=== PATIENT | male | born 1980 | race African-American/Black ===

== ENCOUNTER 2017-05-23 01:55 | Emergency (ER) | payer MEDICAID ==
[~2017-05-23] VITALS: Ht 172.7 cm; Wt 125.0 kg
[2017-05-23] MEDS ORDERED: SODIUM CHLORIDE 0.9% 1,000 ML IV ONE ×2 (02:22→04:04)
[2017-05-23 02:49] LABS: EOSINOPHILS % 2.4 % (0.0-5.0); HEMATOCRIT. 43.2 % (42.0-52.0); HEMOGLOBIN. 14.9 g/dL (14.0-18.0); LYMPHOCYTES % 31.6 % (20.0-50.0); MEAN CORPUSCULAR HEMOGLOBIN 30.4 pg (28.0-32.0); MEAN CORPUSCULAR VOLUME 88.4 fL (80.0-94.0); MEAN PLATELET VOLUME 9.8 fl (7.4-10.4); MONOCYTES % 7.4 % (2.0-8.0); NEUTROPHILS % 57.6 % (40.0-76.0); PLATELET 186 x1000/uL (130-400); RED BLOOD CELL COUNT 4.89 mill/uL (4.7-6.1); RED CELL DISTRIBUTION WIDTH 13.6 % (11.6-14.6)
[2017-05-23 02:54] LABS: PROTHROMBIN TIME 10.6 sec
[2017-05-23 02:58] LABS: AMMONIA 53 uMol/L (<32); CHLORIDE 107 mEq/L (98-107)
[2017-05-23 03:08] LABS: CARBON DIOXIDE 24 mEq/L (21-32)
[2017-05-23 03:09] LABS: CARBAMAZEPINE < 0.5 ug/mL (4-12); CREATINE KINASE 478 IU/L (39-308); ETHANOL BLOOD < 10 mg/dL
[2017-05-23 03:13] LABS: PHENOBARBITAL < 2.1 ug/mL (15.0-40.0); PHENYTOIN < 0.4 ug/mL (10-20); VALPROIC ACID < 3.0 ug/mL (50-100)
[2017-05-23] MEDS ORDERED: SODIUM CHLORIDE 0.9% 1000ML BAG (SEPSIS BOLUS) IV ONE (03:15)
[2017-05-23] MEDS ORDERED: LACTULOSE 20G/30ML UDC PO ONE (03:15)
[2017-05-23] MEDS ORDERED: CARBAMAZEPINE 200MG TABLET PO ONE (03:30)
[2017-05-23] MEDS ORDERED: VALPROATE SODIUM 1,000 MG in DEXT 5% WATER 100 ML IV ONE (04:15)
[2017-05-23 05:28] VITALS: BP 149/94
== END 2017-05-23 06:11 | disposition home or self-care (01) ==
LOC: ER 02:01
DX: G40.909 Epilepsy, unspecified, not intractable, without status epilepticus (principal); S02.82XA Fracture of other specified skull and facial bones, left side, initial encounter for closed fracture; S02.2XXA Fracture of nasal bones, initial encounter for closed fracture; R41.82 Altered mental status, unspecified; E87.2 Acidosis; E72.20 Disorder of urea cycle metabolism, unspecified; X58.XXXA Exposure to other specified factors, initial encounter; Y93.89 Activity, other specified; Y92.018 Other place in single-family (private) house as the place of occurrence of the external cause
CPT/HCPCS: 36415; 70450; 70486; 71010; 72125; 80053; 80156; 80165; 80184; 80185; 82140; 82550; 83605; 84443; 85025; 85610; 93005; 96361; 96365; 99291; G0482; J3490; J7030; Z7610; J7060